=== PATIENT | female | born 1955 | race Caucasian/White ===

== ENCOUNTER 2018-03-03 17:35 | Observation (INO) ==
--- NOTE | 2018-03-03 18:06 | ED ---
HPI General Chief complaint: Shortness of Breath/Dyspnea Stated complaint: SOB/Fall Time Seen by Provider: 03/03/18 17:45 Source: patient and RN notes reviewed Mode of arrival: ambulatory History of Present Illness HPI narrative: 63yF presenting with dyspnea and fall. The patient states that for the past 2 days she's noticed that her feet and ankles are swollen and do not improve the following morning. She says that for the past 1 day she's been short of breath on exertion and when she lies flat and complains of non- productive cough and "chest tightness" but denies chest pain/ pressure. She also reports that she was stepping over a gait today and tripped, falling onto her bilateral knees, injuring her left 5th digit, and "bumped my glasses into my face" but did not lose consciousness. Denies fever, headache, blurred or double vision, nausea or vomiting, or abdominal pain. Patient is visiting from [place], history of CHF, A fib, pacemaker, valve replacement. On warfarin, last INR a week ago was 2.4. Related Data Home Medications Medication Instructions Recorded Confirmed B.infantis-B.ani-B.long-B.bifi PO DAILY 03/03/18 [Probiotic 4X] aspirin [Aspir-Low] 1 tab PO DAILY 03/03/18 03/03/18 biotin 1 tab PO DAILY 03/03/18 03/03/18 cholecalciferol (vitamin D3) 2,000 unit PO DAILY 03/03/18 03/03/18 [Vitamin D3] coQ10 (ubiquinol) 100 mg PO DAILY 03/03/18 03/03/18 diltiazem HCl [Tiazac] 360 mg PO DAILY 03/03/18 03/03/18 ferrous fumarate [Ferrocite] 324 mg PO QWEEK 03/03/18 03/03/18 furosemide [Lasix] 80 mg PO DAILY 03/03/18 03/03/18 lactulose 20 g PO BID 03/03/18 03/03/18 linaclotide [Linzess] 290 mcg PO DAILY 03/03/18 03/03/18 metoprolol succinate 25 mg PO DAILY 03/03/18 03/03/18 potassium chloride 10 meq PO TID 03/03/18 03/03/18 warfarin See Label Instructions .ROUTE 03/03/18 03/03/18 .COMPLEX warfarin See Label Instructions .ROUTE 03/03/18 03/03/18 .COMPLEX Allergies Allergy/AdvReac Type Severity Reaction Status Date / Time milk [Dairy] Allergy Vomiting Verified 03/03/18 17:45 codeine AdvReac Mild Vomiting Verified 06/23/17 12:52 gluten AdvReac Muscle Pain Verified 03/03/18 17:45 Review of Systems ROS: all other systems reviewed are negative Constitutional Denies fever(s) Eyes Denies blurry vision ENT Denies nasal congestion Cardiovascular Denies chest pain and Reports edema Respiratory Reports cough and Reports dyspnea Gastrointestinal Denies nausea Genitourinary Denies dysuria Musculoskeletal Denies back pain and Denies neck pain Neurologic Denies confusion Psychiatric Denies confusion PMFSH History History Provided By: Patient Medical History Medical History Breast cancer (Acute) CHF (congestive heart failure) (Acute) Deviated septum (Acute) History of hysterectomy (Acute) Kidney stone (Acute) Melanoma (Acute) Non Hodgkin's lymphoma (Acute) Pacemaker (Acute) Surgical History Surgical History Aortic valve replaced (Acute) H/O mastectomy (Acute) H/O tubal ligation (Acute) History of bladder repair surgery (Acute) History of lung surgery (Acute) Hx of appendectomy (Acute) Mitral valve replaced (Acute) Previous back surgery (Acute) Social History Social History Substance History: No History of Abuse Second Hand Smoke Exposure: No Smoking Status: Never smoker How Often Do You Have a Drink Containing Alcohol: Monthly or less Recent Travel in [facility] within the Last 8 Weeks: No Recent Out of Country Travel within the Last 8 Weeks: No Exam Const General: healthy appearing and no acute distress [facility] Head: normocephalic and atraumatic Face and sinus: normal facial exam Other: No apparent head or facial trauma Eyes General: appearance normal, both eyes and all related structures Pupils: PERRL Chest Chest: normal inspection of the chest Resp Other: Normal work of breathing, speaking in complete sentences, no respiratory distress Crackles at bilateral bases Cardio Rate: regular rate Rhythm: abnormal rhythm Heart Sounds: murmur GI Inspection: non-distended Palpation: soft and nontender Skin General: no rashes or lesions noted Neuro General: alert, awake and oriented x3 Other: GCS 15, pupils 3 mm and reactive bilaterally, speech clear and fluent, answers questions appropriately, follows commands, moves all extremities, no focal neuro deficits Extrem Other: Small ecchymosis to right lateral elbow, non-tender, normal ROM Tenderness and minimal swelling to left 5th digit, neurovascularly intact, no ecchymosis Ecchymoses to bilateral knees, minimally tender, normal active/ passive ROM, no palpable effusion 1-2+ pitting edema to knees bilaterally Psych Affect: normal affect Course Initial Documented Vital Signs Temperature 97.7 F 03/03/18 17:36 Pulse Rate 96 H 03/03/18 17:36 Respiratory Rate 20 03/03/18 17:36 Blood Pressure 121/58 L 03/03/18 17:36 Pulse Oximetry 96 03/03/18 17:36 Last Documented Vital Signs Temperature 97.7 F 03/03/18 17:36 Pulse Rate 86 03/03/18 19:01 Respiratory Rate 20 03/03/18 19:01 Blood Pressure 114/59 L 03/03/18 19:01 Pulse Oximetry 96 03/03/18 19:01 Medical Decision Making [facility] Narrative Medical decision making narrative: Assessment: 63yF presenting with dyspnea, bilateral lower extremity edema, mechanical fall Plan: EKG and monitor Labs CXR, X-ray knees, X-ray left 5th digit Addendum: Patient's workup significant for RUL infiltrate, no traumatic injuries , creat 1.4 (no previous labs available for comparison). Her PORT score is 92, moderate risk class IV. Will give IV antibiotics and keep for observation. Case discussed with Dr. Rayo of [facility]. Medical Screen Exam Complete: Yes Emergency Medical Condition: Yes Differential Diagnosis Differential Diagnosis: Differential diagnosis includes, but is not limited to: CHF exacerbation, pulmonary edema, pleural effusion, pneumonia, arrhythmia, fracture Lab Data Lab results reviewed: Yes I reviewed the patient's lab results. Result diagrams: 03/03/18 18:10 03/03/18 18:10 Lab Results 03/03/18 03/03/18 03/03/18 Range/Units 18:10 18:10 18:10 CBC w Diff Auto diff final WBC 9.0 (4.0-11.0) th/mm3 RBC 3.85 L (4.00-5.30) mil/mm3 Hgb 10.4 L (11.6-15.3) gm/dL Hct 31.5 L (35.0-46.0) % MCV 81.7 (80.0-100.0) fL MCH 27.0 (27.0-34.0) pg MCHC 33.0 (32.0-36.0) % RDW 18.1 H (11.6-17.2) % Plt Count 236 (150-450) th/mm3 MPV 8.9 (7.0-11.0) fL Neut % (Auto) 83.7 H (16.0-70.0) % Lymph % (Auto) 8.2 L (9.0-44.0) % Kings % (Auto) 6.9 (0.0-8.0) % Eos % (Auto) 0.7 (0.0-4.0) % Baso % (Auto) 0.5 (0.0-2.0) % Neut # (Auto) 7.6 (1.8-7.7) th/mm3 Lymph # (Auto) 0.7 L (1.0-4.8) th/mm3 Kings # (Auto) 0.6 (0.0-0.9) th/mm3 Eos # (Auto) 0.1 (0.0-0.4) th/mm3 Baso # (Auto) 0.0 (0.0-0.2) th/mm3 WBC Differential . Differential Comment . PT 20.7 H (9.8-11.6) sec INR 2.0 Ratio Sodium 140 (136-145) meq/L Potassium 3.2 L (3.5-5.1) meq/L Chloride 104 (98-107) meq/L Carbon Dioxide 27.6 (21.0-32.0) meq/L Anion Gap 8 (5-15) meq/L BUN 21 H (7-18) mg/dL Creatinine 1.40 H (0.50-1.00) mg/dL Estimated GFR 38 L (>89) mL/min Random Glucose 114 H (74-106) mg/dL Calcium 8.2 L (8.5-10.1) mg/dL Magnesium 2.4 (1.5-2.5) mg/dL Total Bilirubin 0.7 (0.2-1.0) mg/dL AST 16 (15-37) U/L ALT 29 (10-53) U/L Alkaline Phosphatase 105 (45-117) U/L Total Creatine Kinase 81 (26-192) U/L Troponin I Less than 0.02 L (0.02-0.05) ng/mL B-Natriuretic Peptide (0-100) pg/mL Total Protein 7.0 (6.4-8.2) g/dL Albumin 3.8 (3.4-5.0) g/dL 03/03/18 Range/Units 18:10 CBC w Diff WBC (4.0-11.0) th/mm3 RBC (4.00-5.30) mil/mm3 Hgb (11.6-15.3) gm/dL Hct (35.0-46.0) % MCV (80.0-100.0) fL MCH (27.0-34.0) pg MCHC (32.0-36.0) % RDW (11.6-17.2) % Plt Count (150-450) th/mm3 MPV (7.0-11.0) fL Neut % (Auto) (16.0-70.0) % Lymph % (Auto) (9.0-44.0) % Kings % (Auto) (0.0-8.0) % Eos % (Auto) (0.0-4.0) % Baso % (Auto) (0.0-2.0) % Neut # (Auto) (1.8-7.7) th/mm3 Lymph # (Auto) (1.0-4.8) th/mm3 Kings # (Auto) (0.0-0.9) th/mm3 Eos # (Auto) (0.0-0.4) th/mm3 Baso # (Auto) (0.0-0.2) th/mm3 WBC Differential Differential Comment PT (9.8-11.6) sec INR Ratio Sodium (136-145) meq/L Potassium (3.5-5.1) meq/L Chloride (98-107) meq/L Carbon Dioxide (21.0-32.0) meq/L Anion Gap (5-15) meq/L BUN (7-18) mg/dL Creatinine (0.50-1.00) mg/dL Estimated GFR (>89) mL/min Random Glucose (74-106) mg/dL Calcium (8.5-10.1) mg/dL Magnesium (1.5-2.5) mg/dL Total Bilirubin (0.2-1.0) mg/dL AST (15-37) U/L ALT (10-53) U/L Alkaline Phosphatase (45-117) U/L Total Creatine Kinase (26-192) U/L Troponin I (0.02-0.05) ng/mL B-Natriuretic Peptide 214 H (0-100) pg/mL Total Protein (6.4-8.2) g/dL Albumin (3.4-5.0) g/dL Imaging Data Radiologist's impression: Chest X-Ray 03/03/18 18:01 CONCLUSION: Multi segmental right upper lobe partially consolidative infiltrates. Finger X-Ray 03/03/18 18:01 CONCLUSION: No evidence of fracture or dislocation. Mild subluxation of the DIP joint with associated degenerative changes. Knee X-Ray 03/03/18 18:01 CONCLUSION: No evidence of fracture or dislocation. Knee X-Ray 03/03/18 18:01 CONCLUSION: No evidence of fracture or dislocation. Discharge Plan Discharge Disposition Patient Disposition: 30 Still Patient Discharge Condition Condition: Stable Discharge Details Diagnosis: Community acquired pneumonia Physicians Team ED Provider: Lynsey Donis Primary Care Provider: Primary Care Norma Gaston Rxs /Orders / Referrals /Forms Prescriptions: No Action warfarin 7.5 mg Tablet See Label Instructions .ROUTE .COMPLEX RF: 0 diltiazem HCl [Tiazac] 360 mg Capsule,Extended Release 24 Hr 360 mg PO DAILY RF: 0 potassium chloride 10 mEq Tablet Extended Release 10 meq PO TID RF: 0 aspirin [Aspir-Low] 81 mg Tablet,Delayed Release (Dr/Ec) 1 tab PO DAILY RF: 0 furosemide [Lasix] 80 mg Tablet 80 mg PO DAILY RF: 0 biotin 10,000 mcg Capsule 1 tab PO DAILY RF: 0 warfarin 5 mg Tablet See Label Instructions .ROUTE .COMPLEX RF: 0 metoprolol succinate 25 mg Tablet Extended Release 24 Hr 25 mg PO DAILY RF: 0 ferrous fumarate [Ferrocite] 324 mg (106 mg iron) Tablet 324 mg PO QWEEK RF: 0 lactulose 10 gram/15 mL Solution 20 g PO BID RF: 0 cholecalciferol (vitamin D3) [Vitamin D3] 2,000 unit Tablet 2,000 unit PO DAILY RF: 0 B.infantis-B.ani-B.long-B.bifi [Probiotic 4X] 10-15 mg Tablet,Delayed Release (Dr/Ec) PO DAILY RF: 0 coQ10 (ubiquinol) 100 mg Capsule 100 mg PO DAILY RF: 0 linaclotide [Linzess] 290 mcg Capsule 290 mcg PO DAILY RF: 0 Discharge Interventions Interventions: Vital Signs Last Done: 03/03/18 19:01 Status ED Status: With Doctor
[2018-03-03 18:29] LABS: Baso % (Auto) 0.5 % (0.0-2.0); Eos # (Auto) 0.1 th/mm3 (0.0-0.4); Eos % (Auto) 0.7 % (0.0-4.0); Hematocrit 31.5 % (35.0-46.0); Hemoglobin 10.4 gm/dL (11.6-15.3); Lymph # (Auto) 0.7 th/mm3 (1.0-4.8); Lymph % (Auto) 8.2 % (9.0-44.0); Mean Corpuscular Volume 81.7 fL (80.0-100.0); Mean Platelet Volume 8.9 fL (7.0-11.0); Mono # (Auto) 0.6 th/mm3 (0.0-0.9); Mono % (Auto) 6.9 % (0.0-8.0); Neut # (Auto) 7.6 th/mm3 (1.8-7.7); Neut % (Auto) 83.7 % (16.0-70.0); Platelet Count 236 th/mm3 (150-450); Red Blood Count 3.85 mil/mm3 (4.00-5.30); Red Cell Distribution Width 18.1 % (11.6-17.2)
[2018-03-03 18:42] LABS: Chloride 104 meq/L (98-107); Potassium 3.2 meq/L (3.5-5.1); Sodium 140 meq/L (136-145)
[2018-03-03 18:43] LABS: Prothrombin Time 20.7 sec (9.8-11.6)
[2018-03-03 18:46] LABS: Albumin 3.8 g/dL (3.4-5.0); Anion Gap 8 meq/L (5-15); Blood Urea Nitrogen 21 mg/dL (7-18); Calcium 8.2 mg/dL (8.5-10.1); Carbon Dioxide 27.6 meq/L (21.0-32.0); Glucose,Random 114 mg/dL (74-106); Magnesium 2.4 mg/dL (1.5-2.5)
[2018-03-03 18:49] LABS: Alanine Aminotransferase 29 U/L (10-53); Aspartate Aminotransferase 16 U/L (15-37); Glomerular Filtration Rate 38 mL/min (>89)
--- NOTE | 2018-03-03 18:51 | XR ---
EXAM DATE: 03/03/2018 6:01 PM EDT AGE/SEX: 63 years / Female INDICATIONS: Fall, pain in left pinky finger. CLINICAL DATA: This is the patient's initial encounter. Patient reports that signs and symptoms have been present for 1 day and indicates a pain score of 6/10. MEDICAL/SURGICAL HISTORY: None. None. COMPARISON: No prior exams available for comparison. FINDINGS: The osseous structures of the fifth digit are grossly intact without evidence of fracture. There is m ild degenerative changes in the DIP joint with a posterior osteophyte the distal phalanx of the DIP j oint and minimal posterior subluxation. No radiopaque foreign bodies. No significant soft tissue swel ling. CONCLUSION: No evidence of fracture or dislocation. Mild subluxation of the DIP joint with associated degenerativ e changes. Electronically signed by: Silverio Amato MD 03/03/2018 6:50 PM EDT
[2018-03-03 18:52] LABS: Alkaline Phosphatase 105 U/L (45-117)
--- NOTE | 2018-03-03 18:53 | XR ---
EXAM DATE: 03/03/2018 6:01 PM EDT AGE/SEX: 63 years / Female INDICATIONS: Fall, this morning left knee pain to anterior knee. CLINICAL DATA: This is the patient's initial encounter. Patient reports that signs and symptoms have been present for 1 day and indicates a pain score of 6/10. MEDICAL/SURGICAL HISTORY: None. None. COMPARISON: No prior exams available for comparison. FINDINGS: Bone density is diffusely decreased. The osseous structures are in normal alignment. No fracture seen . No significant osteophytes in the medial lateral compartment. The suprapatellar soft tissues are no rmal in thickness. There is mild irregular density in the subcutaneous fat of the anterior knee witho ut radiopaque foreign body. CONCLUSION: No evidence of fracture or dislocation. Electronically signed by: Silverio Amato MD 03/03/2018 6:52 PM EDT
--- NOTE | 2018-03-03 18:54 | XR ---
EXAM DATE: 03/03/2018 6:01 PM EDT AGE/SEX: 63 years / Female INDICATIONS: Fall, this morning pain in right knee. CLINICAL DATA: This is the patient's initial encounter. Patient reports that signs and symptoms have been present for 1 day and indicates a pain score of 6/10. MEDICAL/SURGICAL HISTORY: None. Non-responsive. COMPARISON: No prior exams available for comparison. FINDINGS: Bone density is diffusely decreased. The osseous structures are in normal alignment. No evidence of f racture or dislocation. Small enthesophyte arising from the superior anterior patella. Suprapatellar soft tissues are normal in thickness. CONCLUSION: No evidence of fracture or dislocation. Electronically signed by: Silverio Amato MD 03/03/2018 6:53 PM EDT
--- NOTE | 2018-03-03 19:12 | XR ---
EXAM DATE: 03/03/2018 6:01 PM EDT AGE/SEX: 63 years / Female INDICATIONS: . Short of breath. CLINICAL DATA: This is the patient's initial encounter. Patient reports that signs and symptoms have been present for 1 day and indicates a pain score of 5/10. MEDICAL/SURGICAL HISTORY: None. Pacemaker. COMPARISON: [facility], CHEST PA & LAT, 09/15/2016. . FINDINGS: Nonconsolidative infiltrate in the central and lateral right midlung and some scattered areas of opac ity in the lower lateral right lung. The left lung is clear. Both hemidiaphragms remain well delineat ed. The heart is normal size. Evidence of prior median sternotomy, CABG, and prosthetic aortic and mi tral valves. Transvenous cardiac pacer with 2 leads, stable from prior. CONCLUSION: Multi segmental right upper lobe partially consolidative infiltrates. Electronically signed by: Silverio Amato MD 03/03/2018 7:10 PM EDT
[2018-03-03 19:18] LABS: Creatine Kinase 81 U/L (26-192)
[2018-03-03] MEDS ORDERED: Azithromycin Inj 500 MG in Sodium Chlor 0.9% Inj 250 ML IV.SIG ONE (19:43)
[2018-03-03] MEDS ORDERED: Bisacodyl 10 MG Supp RECTAL PRN (20:13)
[2018-03-04 06:02] LABS: Baso % (Auto) 0.5 % (0.0-2.0); Eos % (Auto) 0.6 % (0.0-4.0); Hemoglobin 9.2 gm/dL (11.6-15.3); Lymph # (Auto) 0.5 th/mm3 (1.0-4.8); Lymph % (Auto) 9.3 % (9.0-44.0); Mean Corpuscular HGB Conc 32.7 % (32.0-36.0); Mean Corpuscular Hemoglobin 27.1 pg (27.0-34.0); Mean Corpuscular Volume 82.7 fL (80.0-100.0); Mean Platelet Volume 9.1 fL (7.0-11.0); Mono # (Auto) 0.4 th/mm3 (0.0-0.9); Mono % (Auto) 8.9 % (0.0-8.0); Neut # (Auto) 4.1 th/mm3 (1.8-7.7); Neut % (Auto) 80.7 % (16.0-70.0); Platelet Count 163 th/mm3 (150-450); Red Blood Count 3.39 mil/mm3 (4.00-5.30)
[2018-03-04 06:21] LABS: Chloride 108 meq/L (98-107); Potassium 3.6 meq/L (3.5-5.1); Sodium 142 meq/L (136-145)
[2018-03-04 06:29] LABS: Calcium 8.1 mg/dL (8.5-10.1)
[2018-03-04 06:30] LABS: Albumin 3.2 g/dL (3.4-5.0); Anion Gap 7 meq/L (5-15); Blood Urea Nitrogen 19 mg/dL (7-18); Carbon Dioxide 26.8 meq/L (21.0-32.0); Glucose,Random 92 mg/dL (74-106)
[2018-03-04 06:32] LABS: Aspartate Aminotransferase 13 U/L (15-37)
[2018-03-04 06:33] LABS: Alanine Aminotransferase 18 U/L (10-53); Glomerular Filtration Rate 50 mL/min (>89)
[2018-03-04 06:35] LABS: Alkaline Phosphatase 88 U/L (45-117)
[2018-03-04] MEDS: Azithromycin 250 MG Tablet PO SCH (08:10)
--- NOTE | 2018-03-04 10:05 | P.HP ---
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 Patient states that on Thursday she started developing upper respiratory symptoms with wet cough, congestion, shortness of breath. She fell yesterday while at home and injured her knee. She states that since she was on anticoagulation she came in to get her knee evaluated to make sure there is no abnormality. Patient did undergo workup and did not indicate any acute abnormality with her joints, however patient was found to have community- acquired pneumonia with hypoxia. Patient denies any fever or chills, states that she does have a wet cough but difficulty with bringing up any phlegm. Patient states that there is some tightness in her chest when she tries to take a deep breath. She denies any nausea, vomiting, lower extremity edema. Patient was recommended hospitalization for further evaluation and management. - Diagnosis (1) Acute respiratory failure with hypoxia (2) Community acquired pneumonia (3) Azotemia Review of Systems All other systems reviewed negative except as stated in HPI Respiratory: Reports chest congestion, Reports cough, Reports pain on inspiration Musculoskeletal: Reports joint pain PMFSH - History History Provided By: Patient - Medical History Medical History: Medical History (Last Reviewed 03/04/18 @ 09:50 by ENEDINA Santana) Breast cancer CHF (congestive heart failure) Deviated septum Kidney stone Melanoma Non Hodgkin's lymphoma - Surgical History Surgical History: Surgical History (Last Updated 03/04/18 @ 10:09 by ENEDINA Santana) Aortic valve replaced H/O mastectomy H/O tubal ligation History of bladder repair surgery History of hysterectomy History of lung surgery Hx of appendectomy Mitral valve replaced Pacemaker Previous back surgery - Family History Family History: Family History (Last Updated 03/04/18 @ 09:51 by ENEDINA Santana) Mother History of heart disease History of dementia Father History of heart disease - Tobacco History Second Hand Smoke Exposure: No Tobacco Use In Past 30 Days: No Smoking Status: Never smoker - Alcohol History How Often Do You Have a Drink Containing Alcohol: Monthly or less - Substance Use History Substance History: No History of Abuse - Travel History Recent Travel in the [facility] Within the Last 8 Weeks: No Recent Travel Out of the Country Within the Last 8 Weeks: No - Immunization History Tetanus Immunization: >5 Years Hx Influenza Vaccine This Season: No Medications and Allergies Active Medications: Active Medications Al Hydroxide/Mg Hydroxide (Milk Of Magnesia Liq) 30 ml PO Q12H PRN PRN Reason: Mild Constipation Albuterol (Duoneb Neb (Selam)) 1 ampul NEB Q6HR WHILE AWAKE NEB SELAM Last Admin: 03/04/18 07:41 Dose: Not Given Albuterol (Duoneb Neb (Prn)) 1 ampul NEB Q4HR NEB PRN PRN Reason: sob Aspirin (Ecotrin) 81 mg PO DAILY SELAM Azithromycin (Zithromax) 500 mg PO DAILY [facility] Last Admin: 03/04/18 08:10 Dose: 500 mg Bisacodyl (Dulcolax Supp) 10 mg RECTAL DAILY PRN PRN Reason: SEVERE CONSITIPATION Ferrous Fumarate (Hemocyte) 324 mg PO QWEEK SELAM Furosemide (Lasix) 80 mg PO DAILY SELAM Guaifenesin (Mucinex Er) 600 mg PO BID SELAM Ceftriaxone Sodium 1,000 mg/ (Sodium Chloride) 100 mls @ 200 mls/hr IV.SIG Q24H SELAM Lactulose (Lactulose Liq) 30 ml PO DAILY PRN PRN Reason: SEVERE CONSITIPATION Metoprolol Succinate (Toprol Xl) 25 mg PO DAILY [facility] Non-Formulary Medication (Diltiazem Hcl [Tiazac]) 360 mg PO DAILY [facility] Potassium Chloride (Klor-Con 10) 10 meq PO TID [facility] Sennosides (Senokot) 17.2 mg PO Q12H PRN PRN Reason: Moderate Constipation Sodium Chloride (Ns Flush) 2 ml IV.FLUSH UNSCH PRN PRN Reason: FLUSH AFTER USING IV ACCESS Warfarin Sodium (Coumadin) 0 mg PO .COMPLEX SELAM Warfarin Sodium (Coumadin) 0 mg PO .COMPLEX SELAM Allergies Allergy/AdvReac Type Severity Reaction Status Date / Time milk [Dairy] Allergy Vomiting Verified 03/03/18 17:45 codeine AdvReac Mild Vomiting Verified 06/23/17 12:52 gluten AdvReac Muscle Pain Verified 03/03/18 17:45 Home Medications Medication Instructions Recorded Confirmed Type B.infantis-B.ani-B.long-B.bifi PO DAILY 03/03/18 History [Probiotic 4X] aspirin [Aspir-Low] 1 tab PO DAILY 03/03/18 03/03/18 History biotin 1 tab PO DAILY 03/03/18 03/03/18 History cholecalciferol (vitamin D3) 2,000 unit PO DAILY 03/03/18 03/03/18 History [Vitamin D3] coQ10 (ubiquinol) 100 mg PO DAILY 03/03/18 03/03/18 History diltiazem HCl [Tiazac] 360 mg PO DAILY 03/03/18 03/03/18 History ferrous fumarate [Ferrocite] 324 mg PO QWEEK 03/03/18 03/03/18 History furosemide [Lasix] 80 mg PO DAILY 03/03/18 03/03/18 History lactulose 20 g PO BID 03/03/18 03/03/18 History linaclotide [Linzess] 290 mcg PO DAILY 03/03/18 03/03/18 History metoprolol succinate 25 mg PO DAILY 03/03/18 03/03/18 History potassium chloride 10 meq PO TID 03/03/18 03/03/18 History warfarin See Label Instructions .ROUTE 03/03/18 03/03/18 History .COMPLEX warfarin See Label Instructions .ROUTE 03/03/18 03/03/18 History .COMPLEX Exam Vital signs: Vital Signs 03/03/18 17:36 03/03/18 18:38 03/03/18 19:01 Temperature 97.7 F Pulse Rate 96 H 85 86 Respiratory Rate 20 20 20 Blood Pressure 121/58 L 108/57 L 114/59 L Pulse Oximetry 96 98 96 03/03/18 20:58 03/03/18 21:00 03/03/18 22:20 Temperature 100.0 F H Pulse Rate 102 H Respiratory Rate 25 H Blood Pressure 105/63 Pulse Oximetry 94 L 94 L 98 03/03/18 22:44 03/04/18 00:00 03/04/18 04:00 Temperature 100.4 F H 98.5 F Pulse Rate 102 H 101 H Respiratory Rate 20 20 Blood Pressure 98/52 L 90/54 L 115/67 Pulse Oximetry 94 L 95 03/04/18 07:48 03/04/18 08:00 Temperature 99 F Pulse Rate 108 H Respiratory Rate 20 Blood Pressure 112/64 Pulse Oximetry 92 L 92 L Intake & Output 03/03/18 03/04/18 03/04/18 18:59 06:59 18:59 Intake Total 470 / 470 Balance 470 / 470 Weight 84 kg 82.6 kg Intake: IV 350 / 350 Azithromycin Inj 500 MG In NS 250 / 250 Inj 250 ML @ 250 mls/hr IV.SIG ONCE ONE Rx#:[id number] Rocephin Inj 1,000 MG In NS Inj 100 / 100 100 ML @ 200 mls/hr IV.SIG ONCE ONE Rx#:[id number] Oral 120 / 120 Other: # Voids 2 Weight On Admission 37.966 kg Narrative: GENERAL: Well-developed, well-nourished, in no acute distress. alert and orientated HEENT: Head is normocephalic without any lesions or masses noted. Facial features are symmetric. Eyes: Pupils equal round reactive to light. Extraocular muscles are intact. Conjunctivae were clear. Oropharyngeal: Pharynx without any erythema edema. Tongue is midline without deviation. Buccal mucosa is moist without any masses or lesions NECK: Supple without any masses. Trachea midline no deviation. No JVD, no bruits are appreciated CARDIAC: Regular rhythm, regular rate. S1/S2 are heard. No murmurs gallops or rubs. LUNGS: Diminished breath sounds with rhonchi. No wheeze, or rales. No use of accessory muscles on inspiration or expiration. ABDOMEN: Soft, nontender. Nondistended. Bowel sounds heard in all 4 quadrants. No organomegaly or masses. Negative rebound, negative guarding EXTREMITIES: No edema, pulses are equal bilaterally. No cyanosis or clubbing NEUROLOGY: Mood and affect appear appropriate. Cranial nerves II through XII grossly intact. Muscle strength 5/5 in upper and lower extremities bilaterally. Deep tendon reflexes are 2+ in upper and lower extremities bilaterally. Results - Labs CBC & Chem 7: 03/04/18 05:00 03/04/18 05:00 Labs: Laboratory Results - last 24 hr 03/03/18 03/03/18 03/03/18 18:10 18:10 18:10 CBC w Diff Auto diff final WBC 9.0 RBC 3.85 L Hgb 10.4 L Hct 31.5 L MCV 81.7 MCH 27.0 MCHC 33.0 RDW 18.1 H Plt Count 236 MPV 8.9 Neut % (Auto) 83.7 H Lymph % (Auto) 8.2 L [place] % (Auto) 6.9 Eos % (Auto) 0.7 Baso % (Auto) 0.5 Neut # (Auto) 7.6 Lymph # (Auto) 0.7 L [place] # (Auto) 0.6 Eos # (Auto) 0.1 Baso # (Auto) 0.0 WBC Differential . Differential Comment . PT 20.7 H INR 2.0 Sodium 140 Potassium 3.2 L Chloride 104 Carbon Dioxide 27.6 Anion Gap 8 BUN 21 H Creatinine 1.40 H Estimated GFR 38 L Random Glucose 114 H Calcium 8.2 L Magnesium 2.4 Total Bilirubin 0.7 AST 16 ALT 29 Alkaline Phosphatase 105 Total Creatine Kinase 81 Troponin I Less than 0.02 L B-Natriuretic Peptide Total Protein 7.0 Albumin 3.8 03/03/18 03/04/18 03/04/18 18:10 05:00 05:00 CBC w Diff Auto diff final WBC 5.0 RBC 3.39 L Hgb 9.2 L Hct 28.0 L MCV 82.7 MCH 27.1 MCHC 32.7 RDW 18.0 H Plt Count 163 D MPV 9.1 Neut % (Auto) 80.7 H Lymph % (Auto) 9.3 [place] % (Auto) 8.9 H Eos % (Auto) 0.6 Baso % (Auto) 0.5 Neut # (Auto) 4.1 Lymph # (Auto) 0.5 L [place] # (Auto) 0.4 Eos # (Auto) 0.0 Baso # (Auto) 0.0 WBC Differential . Differential Comment . PT INR Sodium 142 Potassium 3.6 Chloride 108 H Carbon Dioxide 26.8 Anion Gap 7 BUN 19 H Creatinine 1.10 H Estimated GFR 50 L Random Glucose 92 Calcium 8.1 L Magnesium Total Bilirubin 0.8 AST 13 L ALT 18 Alkaline Phosphatase 88 Total Creatine Kinase Troponin I B-Natriuretic Peptide 214 H Total Protein 6.0 L D Albumin 3.2 L D - Imaging Impressions Chest X-Ray 03/03/18 18:01 CONCLUSION: Multi segmental right upper lobe partially consolidative infiltrates. Finger X-Ray 03/03/18 18:01 CONCLUSION: No evidence of fracture or dislocation. Mild subluxation of the DIP joint with associated degenerative changes. Knee X-Ray 03/03/18 18:01 CONCLUSION: No evidence of fracture or dislocation. Knee X-Ray 03/03/18 18:01 CONCLUSION: No evidence of fracture or dislocation. Caprini VTE Risk Assessment Caprini VTE Risk Assessment: Moderate/High Risk (score >= 2) Caprini Risk Assessment Model: Point Value = 1 Point Value = 2 Point Value = 3 Point Value = 5 Age 41-60 Minor surgery BMI > 25 kg/m2 Swollen legs Varicose veins or History of unexplained or recurrent spontaneous Oral contraceptives or hormone replacement Sepsis (< 1 month) Serious lung disease, including pneumonia (< 1 month) Abnormal pulmonary function Acute myocardial infarction Congestive heart failure (< 1 month) History of inflammatory bowel disease Medical patient at bed rest Age 61-74 Arthroscopic surgery Major open surgery (> 45 min) Laparoscopic surgery (> 45 min) Malignancy Confined to bed (> 72 hours) Immobilizing plaster cast Central venous access Age >= 75 History of VTE Family history of VTE Factor V Leiden Prothrombin [id number] Lupus anticoagulant Anticardiolipin antibodies Elevated serum homocysteine Heparin-induced thrombocytopenia Other congenital or acquired thrombophilia Stroke (< 1 month) Elective arthroplasty Hip, pelvis, or leg fracture Acute spinal cord injury (< 1 month) Prophylaxis Regimen: Total Risk Factor Score Risk Level Prophylaxis Regimen 0-1 Low Early ambulation 2 Moderate Order ONE of the following: *Sequential Compression Device (SCD) *Heparin 5000 units SQ BID 3-4 Higher Order ONE of the following medications: *Heparin 5000 units SQ TID *Enoxaparin/Lovenox 40 mg SQ daily (WT < 150 kg, CrCl > 30 mL/min) *Enoxaparin/Lovenox 30 mg SQ daily (WT < 150 kg, CrCl > 10-29 mL/min) *Enoxaparin/Lovenox 30 mg SQ BID (WT < 150 kg, CrCl > 30 mL/min) AND/OR *Sequential Compression Device (SCD) 5 or more Highest Order ONE of the following medications: *Heparin 5000 units SQ TID (Preferred with Epidurals) *Enoxaparin/Lovenox 40 mg SQ daily (WT < 150 kg, CrCl > 30 mL/min) *Enoxaparin/Lovenox 30 mg SQ daily (WT < 150 kg, CrCl > 10-29 mL/min) *Enoxaparin/Lovenox 30 mg SQ BID (WT < 150 kg, CrCl > 30 mL/min) AND *Sequential Compression Device (SCD) Assessment and Plan - Assessment (1) Acute respiratory failure with hypoxia Code(s): J96.01 - Acute respiratory failure with hypoxia Status: Acute (2) Community acquired pneumonia Code(s): J18.9 - Pneumonia, unspecified organism Status: Acute (3) Azotemia Code(s): R79.89 - Other specified abnormal findings of blood chemistry Status : Acute - Plan Acute hypoxic respiratory failure, secondary to community-acquired pneumonia -Continue O2 supplementation maintain O2 sats greater than 92% -Continue antibiotics for community acquired pneumonia to include Rocephin and Zithromax -Continue duo nebs every 6 hours while awake and every 4 hours as needed -Start Mucinex 600 mg twice daily -Start Acapella Aortic/mitral moving heart valves, congestive heart failure -Continue home medications -Continue Coumadin, monitor INR daily DVT prevention -Patient on Coumadin with INR 2.0
[2018-03-04] MEDS: Furosemide 80 MG Tablet PO SCH (10:42)
[2018-03-04] MEDS: dilTIAZem CD 180 MG Capsule PO SCH (10:43)
[2018-03-04] MEDS: guaiFENesin 600 MG ER Tablet PO SCH ×2 (10:43→20:42)
[2018-03-04] MEDS: Acetaminophen 500 MG Tablet PO PRN (13:10)
[2018-03-04] MEDS ORDERED: diphenhydrAMINE 2%/Zinc Cream 30 GM Tube TOPICAL PRN (20:00)
[2018-03-04 20:09] VITALS: RESP 18
--- NOTE | 2018-03-04 22:41 | ECG ---
Date Performed: 03/03/2018 Time Performed: 18:26:38 PTAGE: 63 years EKG: Sinus rhythm NONSPECIFIC ST & T-WAVE ABNORMALITY BORDERLINE ECG NO PREVIOUS TRACING DOCTOR: Anjali Rosen Interpretating Date/Time 03/04/2018 22:39:55
[2018-03-05] MEDS: Acetaminophen 500 MG Tablet PO PRN (01:06)
[2018-03-05 06:24] LABS: Potassium 3.5 meq/L (3.5-5.1)
[2018-03-05 06:27] LABS: Calcium 7.8 mg/dL (8.5-10.1); Carbon Dioxide 27.8 meq/L (21.0-32.0)
[2018-03-05 07:12] LABS: INR 1.7 Ratio; Prothrombin Time 17.2 sec (9.8-11.6)
[2018-03-05] MEDS: Furosemide 80 MG Tablet PO SCH (08:08)
[2018-03-05] MEDS: Azithromycin 250 MG Tablet PO SCH (08:08)
[2018-03-05] MEDS ORDERED: guaiFENesin/Codeine Syrup 200 MG/20 MG 10 ML UDC PO PRN (08:08)
[2018-03-05] MEDS: guaiFENesin 600 MG ER Tablet PO SCH (08:08)
[2018-03-05] MEDS: dilTIAZem CD 180 MG Capsule PO SCH (08:15)
--- NOTE | 2018-03-05 08:17 | P.PN ---
Subjective Interval history: 63-year-old female who is seen and examined today for follow-up on community acquired pneumonia, hypoxic respiratory failure. Patient with improved oxygenation. 94% on room air. Patient now started to get a wet cough with sputum production. Patient with fever late last evening. Remains afebrile today. Patient states that she is feeling much better. States that her respiratory status is at baseline. Physical Exam Vital signs: Vital Signs 03/04/18 11:15 03/04/18 12:00 03/04/18 16:00 Temperature 98.1 F 96.4 F L Pulse Rate 105 H 101 H 75 Respiratory Rate 20 20 Blood Pressure 116/63 97/55 L Pulse Oximetry 91 L 95 03/04/18 19:39 03/04/18 20:00 03/05/18 00:00 Temperature 97.3 F L 101.3 F H Pulse Rate 86 93 H 101 H Respiratory Rate 18 18 18 Blood Pressure 91/50 L 116/60 Pulse Oximetry 92 L 94 L 97 03/05/18 04:00 03/05/18 07:37 Temperature 99.5 F Pulse Rate 90 Respiratory Rate 18 Blood Pressure 95/54 L Pulse Oximetry 93 L 90 L Intake & Output 03/04/18 03/05/18 03/05/18 18:59 06:59 18:59 Intake Total 330 / 330 1240 / 1240 Balance 330 / 330 1240 / 1240 Weight 82.4 kg Intake: IV 1000 / 1000 Rocephin Inj 1,000 MG In NS Inj 1000 / 1000 100 ML @ 200 mls/hr IV.SIG Q24H MARA Rx#:[id number] Oral 330 / 330 240 / 240 Other: # Voids 3 2 Narrative: GENERAL: Well-developed, well-nourished, in no acute distress. alert and orientated HEENT: Head is normocephalic without any lesions or masses noted. Facial features are symmetric. Eyes: Extraocular muscles are intact. Conjunctivae were clear. NECK: Supple without any masses. Trachea midline no deviation. No JVD, CARDIAC: Regular rhythm, regular rate. S1/S2 are heard. No murmurs gallops or rubs. LUNGS: Wet rhonchi noted bilaterally. No wheeze, or rales. No use of accessory muscles on inspiration or expiration. ABDOMEN: Soft, nontender. Nondistended. Bowel sounds heard in all 4 quadrants. No organomegaly or masses. Negative rebound, negative guarding EXTREMITIES: No edema, pulses are equal bilaterally. No cyanosis or clubbing NEUROLOGY: Mood and affect appear appropriate. Cranial nerves II through XII grossly intact. Moving all extremities, speech is clear Results - Labs CBC & Chem 7: 03/04/18 05:00 03/05/18 04:58 Laboratory Results - last 24 hr 03/05/18 03/05/18 04:58 04:58 PT 17.2 H INR 1.7 Sodium 139 Potassium 3.5 Chloride 104 Carbon Dioxide 27.8 Anion Gap 7 BUN 19 H Creatinine 1.10 H Estimated GFR 50 L Random Glucose 89 Calcium 7.8 L Assessment and Plan - Assessment (1) Acute respiratory failure with hypoxia Code(s): J96.01 - Acute respiratory failure with hypoxia Status: Acute (2) Community acquired pneumonia Code(s): J18.9 - Pneumonia, unspecified organism Status: Acute (3) Azotemia Code(s): R79.89 - Other specified abnormal findings of blood chemistry Status : Acute - Plan Acute hypoxic respiratory failure, secondary to community-acquired pneumonia, improving -Continue O2 supplementation maintain O2 sats greater than 92% -Continue antibiotics for community acquired pneumonia to include Rocephin and Zithromax -Continue duo nebs every 6 hours while awake and every 4 hours as needed -Continue Mucinex 600 mg twice daily -Continue Acapella -incentive spirometry -Home oxygen walk study was performed and patient does not require oxygen upon discharge Hypotension -Could be secondary to underlying sepsis, -Status post normal saline 500 ml bolus -Hold parameters on blood pressure medications Aortic/mitral moving heart valves, congestive heart failure -Continue home medications -Continue Coumadin, monitor INR daily -Started Lovenox 1/2 mg/kg every 12 hours for Coumadin bridge, discontinue when INR greater than 2.0 DVT prevention -Patient on Coumadin with INR 1.7, started Lovenox Discharge Planning: Discharge home in stable condition Activity: Ad alex. Diet: Healthy heart diet Medication per medication reconciliation Follow-up with primary medical doctor in 1 week
[2018-03-05] MEDS ORDERED: Enoxaparin Inj 40 MG/0.4 ML Syringe SQ SCH (09:00)
[2018-03-05] MEDS: Sodium Chlor 0.9% Inj 500 ML IV.SIG SCH ×2 (10:59→14:10)
[2018-03-05 12:20] VITALS: BP 98/57; PULSE 95; TEMP 99.2
[2018-03-05] MEDS ORDERED: Sodium Chlor 0.9% Inj 500 ML IV.SIG SCH (14:00)
[2018-03-05 14:46] VITALS: O2SAT 93
== END 2018-03-05 16:34 | disposition home or self-care (01) ==
LOC: PHEDA 17:35 → PHED 17:35 → PH3 21:36
PROVIDERS: ADMIT Hospitalist; ATTEND Hospitalist